=== PATIENT | female | born 1990 | race Caucasian/White ===

== ENCOUNTER 2018-10-02 17:51 | Emergency (ER) | payer BC ==
[~2018-10-02] VITALS: Ht 170.2 cm; Wt 100.0 kg
[~2018-10-02 17:51] MED LIST: CIPRO 500MG TA500 MG PO; LORTAB 5/500 501 TAB PO; SPRINTEC 35 MCG1 TAB PO
[2018-10-02 18:01] VITALS: TEMP 97.1
[2018-10-02 18:45] LABS: BASO % 0.6 % (0.0-2.0); EOS # 0.3 (0.0-0.7); EOS % 5.9 % (0-4.0); GRAN # 2.6 (1.4-6.5); GRAN % 49.7 % (42.2-75.2); HEMOGLOBIN 13.1 g/dl (12.5-16.0); LYMPH # 1.8 (1.2-3.4); LYMPH % 34.8 % (20.0-51.0); MEAN CELL VOLUME 83 fl (80.0-100.0); MEAN CORPUSCULAR HEMOGLOBIN 27 pg (27.0-31.0); MEAN CORPUSCULAR HGB CONC 33 g/dl (33.0-37.0); MEAN PLATELET VOLUME 9.7 fl (7.4-10.4); MONO # 0.5 (0.1-0.6); MONO % 8.8 % (1.7-9.3); PLATELET COUNT 237 K/mm3 (130-400); RED BLOOD COUNT 4.82 M/mm3 (4.10-5.30); REDCELL DISTRIBUTION WIDTH-CV 13.3 % (11.5-14.5)
[2018-10-02 18:54] LABS: ALBUMIN 4.2 gm/dL (3.5-5.0); BILIRUBIN,TOTAL 0.2 mg/dL (0.0-1.0); CALCIUM 9.2 mg/dL (8.4-10.2); CREATININE, serum 0.59 (0.52-1.25); POTASSIUM 3.6 mmol/L (3.4-5.0); TOTAL PROTEIN 7.6 gm/dL (6.4-8.2)
[2018-10-02 19:30] LABS: COLLECTION METHOD CLEAN CATCH
[2018-10-02 20:06] LABS: MUCOUS Present /lpf; PH 5 (5-8); SQUAMOUS EPITHELIAL 0-2 /hpf; URINE APPEARANCE Hazy; URINE BACTERIA None Seen /hpf; URINE BILIRUBIN Negative (NEGATIVE); URINE BLOOD Negative (NEGATIVE); URINE CALCIUM OXALATE CRYSTAL Present /hpf; URINE COLOR Yellow; URINE GLUCOSE Negative (NEGATIVE); URINE KETONE Negative (NEGATIVE); URINE LEUKOCYTE ESTERASE Negative (NEGATIVE); URINE NITRATE Negative (NEGATIVE); URINE PROTEIN(semi-quant) Negative (NEGATIVE); URINE RBC 0-2 /hpf; URINE UROBILINOGEN Negative (NEGATIVE)
[2018-10-02] MEDS ORDERED: CIPRO 500MG TA500 MG PO (20:53)
[2018-10-02] MEDS ORDERED: NORCO 325 MG-51 TAB PO (20:53)
[2018-10-02] MEDS ORDERED: ZOFRAN ODT4 MG PO (20:53)
[2018-10-02 21:31] VITALS: BP 130/80; PULSE 72
== END 2018-10-02 21:32 | disposition home or self-care (01) ==
LOC: COL.ER 17:51
PROVIDERS: Emergency Medicine
DX: K52.9 Noninfective gastroenteritis and colitis, unspecified (principal)
CPT/HCPCS: J0780; J1170; J1885; J2405; J7030; Q9967